=== PATIENT | female | born 1935 | race Caucasian/White ===

== ENCOUNTER → 2017-02-23 | Outpatient (CLI) | payer OTHER | LOC: FIMAGING 10:31 | PROVIDERS: ATTEND Family Medicine | DX: Z13.820 Encounter for screening for osteoporosis (principal); M81.0 Age-related osteoporosis without current pathological fracture; Z78.0 Asymptomatic menopausal state ==

== ENCOUNTER 2018-06-21 04:01 | Inpatient (IN) | payer OTHER ==
[2018-06-21] MEDS ORDERED: NS 1,000 ML IV ONE (04:09)
[2018-06-21] MEDS ORDERED: DILTIAZEM 25 MG/5 ML VIAL IVP ONE (04:10)
--- NOTE | 2018-06-21 04:13 | EDPHY ---
H & P Time Seen by Provider: 06/21/18 04:10 HPI/ROS: HPI CHIEF COMPLAINT: Lightheadedness, AFib RVR HISTORY OF PRESENT ILLNESS: Very pleasant 83-year-old female, states only medical history is thyroid disease, presents emergency room by EMS after she states that she woke up with reflux in her throat. She took 2 antacid medications comma got up and felt very lightheaded. [place] like she was going to pass out. Did not have any chest pain. Did not pass out. Called 911. EMS arrived to find her in AFib with RVR and heart rates of 150s. Patient presents emergency room in no acute distress. However noted to be in AFib with RVR. Denies chest pain shortness of breath. Does state she feels lightheaded. And feels that her heart is racing. Past Medical History: No significant medical history except for thyroid disease remote history of AFib with pneumonia. Past Surgical History: Denies any recent surgery. Social History: Lives at the [facility]. Family History: Noncontributory ROS REVIEW OF SYSTEMS: 10 Systems were reviewed and negative with the exception of the elements mentioned in the history of present illness. Exam Constitutional triage nursing summary reviewed, vital signs reviewed, awake/ alert. Tachycardic to 150s. Eyes normal conjunctivae and sclera, EOMI, PERRLA. HENT normal inspection, atraumatic, moist mucus membranes, no epistaxis, neck supple/ no meningismus, no raccoon eyes. Respiratory clear to auscultation bilaterally, normal breath sounds, no respiratory distress, no wheezing. Cardiovascular tachycardic, irregular, irregular rhythm no murmur, no edema, distal pulses normal. Gastrointestinal soft, non-tender, no rebound, no guarding, normal bowel sounds, no distension, no pulsatile mass. Genitourinary no CVA tenderness. Musculoskeletal no midline vertebral tenderness, full range of motion, no calf swelling, no tenderness of extremities, no meningismus, good pulses, neurovascularly intact. Skin pink, warm, & dry, no rash, skin atraumatic. Neurologic awake, alert and oriented x 3, AAOx3, moves all 4 extremities equally, motor intact, sensory intact, CN II-XII intact, normal cerebellar, normal vision, normal speech. Psychiatric normal mood/affect. Heme/Lymph/Immune no lymphadenopathy. 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 Re-evaluation: EKG interpretation by me on record in [facility] system. Impression time of EKG 0422: AFib rate of 148, no ST elevation. 0441: Patient's heart rate down 106 irregular. AFib present. After 10 mg IV diltiazem. Troponin 0.00. ED x-ray chest one view: Negative for acute cardiopulmonary disease. EKG interpretation by me on record in [facility] system. Impression time of EKG 4:45 a.m., AFib rate of 82, no signs of acute ischemia. Source: Patient, EMS Constitutional: Initial Vital Signs Temperature (C) 36.6 C 06/21/18 04:00 Heart Rate 149 H 06/21/18 04:00 Respiratory Rate 18 06/21/18 04:00 Blood Pressure 127/97 H 06/21/18 04:00 O2 Sat (%) 95 06/21/18 04:00 O2 Delivery Mode Room Air Allergies/Adverse Reactions: No Known Allergies Allergy (Verified 04/23/13 19:16) Home Medications: Medication Instructions Recorded Calcium Unk 04/23/13 Fish Oil Unk 04/23/13 Glucosamine Chondroitin Msm Unk 04/23/13 Hydrocodone Bit/Acetaminophen 1 tab PO Q4-6PRN PRN #14 tab 04/23/13 [Vicodin 5/500] Hydrocodone Bit/Acetaminophen 1 tab PO Q4-6PRN PRN #14 tab 04/23/13 [Vicodin 5/500] Levothyroxine Unk 04/23/13 Multivitamins Unk 04/23/13 Medical Decision Making - Data Points Laboratory Results: Laboratory Results 06/21/18 04:10 06/21/18 04:10 06/21/18 06/21/18 06/21/18 04:10 04:10 04:10 WBC 11.51 10^3/uL H 10^3/uL (3.80-9.50) RBC 5.46 10^6/uL H 10^6/uL (4.18-5.33) Hgb 16.7 g/dL H g/dL (12.6-16.3) Hct 50.8 % H % (38.0-47.0) MCV 93.0 fL fL (81.5-99.8) MCH 30.6 pg pg (27.9-34.1) MCHC 32.9 g/dL g/dL (32.4-36.7) RDW 13.2 % % (11.5-15.2) Plt Count 192 10^3/uL 10^3/uL (150-400) MPV 10.8 fL fL (8.7-11.7) Neut % (Auto) 58.4 % % (39.3-74.2) Lymph % (Auto) 28.9 % % (15.0-45.0) [place] % (Auto) 10.0 % % (4.5-13.0) Eos % (Auto) 1.8 % % (0.6-7.6) Baso % (Auto) 0.6 % % (0.3-1.7) Nucleat RBC Rel Count 0.0 % % (0.0-0.2) Absolute Neuts (auto) 6.71 10^3/uL H 10^3/uL (1.70-6.50) Absolute Lymphs (auto) 3.33 10^3/uL H 10^3/uL (1.00-3.00) Absolute Monos (auto) 1.15 10^3/uL H 10^3/uL (0.30-0.80) Absolute Eos (auto) 0.21 10^3/uL 10^3/uL (0.03-0.40) Absolute Basos (auto) 0.07 10^3/uL 10^3/uL (0.02-0.10) Absolute Nucleated RBC 0.00 10^3/uL 10^3/uL (0-0.01) Immature Gran % 0.3 % % (0.0-1.1) Immature Gran # 0.04 10^3/uL 10^3/uL (0.00-0.10) PT 12.6 SEC SEC (12.0-15.0) INR 0.92 (0.83-1.16) APTT 25.8 SEC SEC (23.0-38.0) Sodium 144 mEq/L mEq/L (135-145) Potassium 4.3 mEq/L mEq/L (3.3-5.0) Chloride 109 mEq/L mEq/L (97-110) Carbon Dioxide 25 mEq/l mEq/l (22-31) Anion Gap 10 mEq/L mEq/L (8-16) BUN 26 mg/dL H mg/dL (7-23) Creatinine 0.6 mg/dL mg/dL (0.6-1.0) Estimated GFR > 60 Glucose 97 mg/dL mg/dL (70-100) Calcium 10.0 mg/dL mg/dL (8.5-10.4) Magnesium 2.2 mg/dL mg/dL (1.6-2.3) Total Bilirubin 0.4 mg/dL mg/dL (0.1-1.4) Conjugated Bilirubin 0.1 mg/dL mg/dL (0.0-0.5) Unconjugated Bilirubin 0.3 mg/dL mg/dL (0.0-1.1) AST 22 IU/L IU/L (14-46) ALT 32 IU/L IU/L (9-52) Alkaline Phosphatase 89 IU/L IU/L (38-126) POC Troponin I NT-Pro-B Natriuret Pep 253 pg/mL pg/mL (0-450) Total Protein 6.8 g/dL g/dL (6.3-8.2) Albumin 4.0 g/dL g/dL (3.5-5.0) TSH 1.100 uIU/mL uIU/mL (0.465-4.680) 06/21/18 04:09 WBC RBC Hgb Hct MCV MCH MCHC RDW Plt Count MPV Neut % (Auto) Lymph % (Auto) [place]utter % (Auto) Eos % (Auto) Baso % (Auto) Nucleat RBC Rel Count Absolute Neuts (auto) Absolute Lymphs (auto) Absolute Monos (auto) Absolute Eos (auto) Absolute Basos (auto) Absolute Nucleated RBC Immature Gran % Immature Gran # PT INR APTT Sodium Potassium Chloride Carbon Dioxide Anion Gap BUN Creatinine Estimated GFR Glucose Calcium Magnesium Total Bilirubin Conjugated Bilirubin Unconjugated Bilirubin AST ALT Alkaline Phosphatase POC Troponin I 0.00 ng/mL ng/mL (0.00-0.08) NT-Pro-B Natriuret Pep Total Protein Albumin TSH Medications Given: Discontinued Medications Diltiazem HCl (Cardizem 25 Mg/5 Ml Vial) 10 mg IVP EDNOW ONE Stop: 06/21/18 04:11 Last Admin: 06/21/18 04:25 Dose: 10 mg Sodium Chloride (Ns) 1,000 mls @ 0 mls/hr IV EDNOW ONE; Wide Open PRN Reason: Protocol Stop: 06/21/18 04:10 Last Admin: 06/21/18 04:25 Dose: 1,000 mls Diltiazem/Dextrose (Diltiazem 125mg/125ml (Premix)) 125 mls @ 0 mls/hr IV EDNOW ONE; Per Protocol PRN Reason: Protocol Stop: 06/21/18 04:31 Last Admin: 06/21/18 04:31 Dose: 125 mls Point of Care Test Results: Chemistry 06/21/18 04:09 POC Troponin I 0.00 ng/mL ng/mL (0.00-0.08) Departure - Departure Disposition: [facility] Inpatient Acute Clinical Impression: Atrial fibrillation Qualifiers: Atrial fibrillation type: paroxysmal Qualified Code(s): I48.0 - Paroxysmal atrial fibrillation Condition: Fair Referrals: Patient,NotPresent [Unknown] - As per Instructions
[2018-06-21 04:15] LABS: PLATELET COUNT 192 10^3/uL (150-400)
[2018-06-21] MEDS ORDERED: DILTIAZEM 125 MG in D5W 125 ML IV SCH ×2 (04:15→05:45)
[2018-06-21 04:25] LABS: INR 0.92 (0.83-1.16); PROTIME(PATIENT) 12.6 SEC (12.0-15.0)
[2018-06-21] MEDS ORDERED: DILTIAZEM HCL/D5W 125 ML IV ONE (04:30)
[2018-06-21] MEDS ORDERED: ACETAMINOPHEN 325 MG TAB PO PRN (05:36)
[2018-06-21] MEDS ORDERED: ONDANSETRON 4 MG/2 ML VIAL IVP PRN (05:36)
[2018-06-21] MEDS ORDERED: NS 1,000 ML IV SCH (05:45)
--- NOTE | 2018-06-21 06:16 | PDGENHP ---
History and Physical - Chief Complaint Reflux, lightheadedness, palpitations - History of Present Illness Source-patient provides history appears reliable. EMR was reviewed and case discussed with ED provider. HPI - is a very pleasant 83-year-old female past medical history significant for hypothyroidism and a singular episode of atrial fibrillation during hospitalization and acute illness with pneumonia who presents emergency department today after waking up with reflux type symptoms and lower neck discomfort. Patient reports that she tried to take 2 Tums on without noting to significant improvement in her symptoms. She subsequently developed significant lightheadedness and palpitations. She denies any chest pain pressure or shortness of breath. She did not have a syncopal episode and she called 911. EMS arrived to find patient had a heart rate in the 150s and was in AFib with RVR. Patient denies any acute illnesses. No recent fevers chills. She has chronic nasal congestion but no sore throat or cough. Patient reports a little bit of nausea earlier that is now resolved no abdominal pain no diarrhea. No other acute illnesses reported. History Information - Allergies/Home Medication List Allergies/Adverse Reactions: No Known Allergies Allergy (Verified 04/23/13 19:16) Home Medications: Calcium Unk 04/23/13 [Last Taken Unknown] Fish Oil Unk 04/23/13 [Last Taken Unknown] Glucosamine Chondroitin Msm Unk 04/23/13 [Last Taken Unknown] Levothyroxine Unk 04/23/13 [Last Taken Unknown] Multivitamins Unk 04/23/13 [Last Taken Unknown] I have personally reviewed and updated: family history, medical history, social history, surgical history - Past Medical History Additional medical history: Hypothyroidism. Remote history of atrial fibrillation x1 episode during acute illness. Patient reports that she had a Holter monitor is followed by Dr. Enoch Shelley. She states the monitor not note any acute events and she has not been on any medications for rate control or anticoagulation. - Surgical History Additional surgical history: Bilateral cataract extraction with lens placement. Lap yoselyn. Right EDUIN - Family History Additional family history: Father- emphysema. Possibly with history of AFib. No family history of CAD. - Social History Smoking Status: Never smoked Alcohol Use: Occasionally (Patient drinks occasional glass a wine.) Drug Use: None Additional social history: Patient is . She lives at [facility]. Patient lives leads active lifestyle she hikes on a regular basis and is generally quite independent. Cor status-limited. Patient does not want any compressions or intubation if needed. She is amenable to defibrillation and IV medications. Review of Systems Review of Systems: ROS: 10pt was reviewed & negative except for what was stated in HPI & below Constitutional: Reports: no symptoms EENMT: Reports: nose congestion (Chronic), other (Patient wears glasses). Denies: blurred vision, sore throat, throat swelling Cardiac: Reports: lightheadedness, palpitations. Denies: chest pain, edema, syncope (Patient reports some presyncope) Respiratory: Reports: no symptoms. Denies: orthopnea, shortness of breath Gastrointestinal: Reports: nausea. Denies: vomitting, abdominal pain, diarrhea Genitourinary: Reports: no symptoms Muscolosketal: Reports: no symptoms Skin: Reports: no symptoms Neurological: Reports: no symptoms Hematologic/Lymphatic: Reports: no symptoms Physical Exam Physical Exam: Temp Pulse Resp BP Pulse Ox 36.6 C 149 H 18 127/97 H 95 06/21/18 04:00 06/21/18 04:00 06/21/18 04:00 06/21/18 04:00 06/21/18 04:00 Constitutional: no apparent distress, appears nourished, not in pain, other ( NAD. Pleasant elderly female is resting quietly in a gurney. Family at bedside.) Eyes: PERRL (Lens reflex appreciated bilaterally glasses on), anicteric sclera, EOMI, No scleral injection Ears, Nose, Mouth, Throat: no oral mucosal ulcers, dry mucous membranes, hard of hearing, No poor dentition Cardiovascular: no murmur, rub, or gallop (Limited secondary a to tachycardia.) , irregularly irregular, pulses symmetric bilaterally, tachycardia, No edema Peripheral Pulses: 1+: dorsalis-pedis (R), dorsalis-pedis (L) Respiratory: no respiratory distress, no rales or rhonchi, clear to auscultation , reduced air movement (Decreased inspiratory effort bibasilarly.), No expiratory wheeze, No inspiratory crackles, No respiratory distress Gastrointestinal: normoactive bowel sounds, soft, non-tender abdomen, no palpable masses, No distension Genitourinary: no bladder tenderness, No dennison in urethra Skin: warm, normal color, no rashes or abrasions, no fluctuance, No erythema, No rash Musculoskeletal: full muscle strength (Patient sits up independently), No generalized weakness Neurologic: AAOx3, sensation intact bilaterally, other (Grossly nonfocal exam.) , No facial droop Psychiatric: interacting appropriately, not anxious, not encephalopathic, thought process linear, No encephalopathic, No poor insight, No poor judgement, No poor memory Lab Data & Imaging Review 06/21/18 04:10 06/21/18 04:10 WBC 11.51 10^3/uL (3.80-9.50) H 06/21/18 04:10 RBC 5.46 10^6/uL (4.18-5.33) H 06/21/18 04:10 Hgb 16.7 g/dL (12.6-16.3) H 06/21/18 04:10 Hct 50.8 % (38.0-47.0) H 06/21/18 04:10 MCV 93.0 fL (81.5-99.8) 06/21/18 04:10 MCH 30.6 pg (27.9-34.1) 06/21/18 04:10 MCHC 32.9 g/dL (32.4-36.7) 06/21/18 04:10 RDW 13.2 % (11.5-15.2) 06/21/18 04:10 Plt Count 192 10^3/uL (150-400) 06/21/18 04:10 MPV 10.8 fL (8.7-11.7) 06/21/18 04:10 Neut % (Auto) 58.4 % (39.3-74.2) 06/21/18 04:10 Lymph % (Auto) 28.9 % (15.0-45.0) 06/21/18 04:10 [place] % (Auto) 10.0 % (4.5-13.0) 06/21/18 04:10 Eos % (Auto) 1.8 % (0.6-7.6) 06/21/18 04:10 Baso % (Auto) 0.6 % (0.3-1.7) 06/21/18 04:10 Nucleat RBC Rel Count 0.0 % (0.0-0.2) 06/21/18 04:10 Absolute Neuts (auto) 6.71 10^3/uL (1.70-6.50) H 06/21/18 04:10 Absolute Lymphs (auto) 3.33 10^3/uL (1.00-3.00) H 06/21/18 04:10 Absolute Monos (auto) 1.15 10^3/uL (0.30-0.80) H 06/21/18 04:10 Absolute Eos (auto) 0.21 10^3/uL (0.03-0.40) 06/21/18 04:10 Absolute Basos (auto) 0.07 10^3/uL (0.02-0.10) 06/21/18 04:10 Absolute Nucleated RBC 0.00 10^3/uL (0-0.01) 06/21/18 04:10 Immature Gran % 0.3 % (0.0-1.1) 06/21/18 04:10 Immature Gran # 0.04 10^3/uL (0.00-0.10) 06/21/18 04:10 PT 12.6 SEC (12.0-15.0) 06/21/18 04:10 INR 0.92 (0.83-1.16) 06/21/18 04:10 APTT 25.8 SEC (23.0-38.0) 06/21/18 04:10 Sodium 144 mEq/L (135-145) 06/21/18 04:10 Potassium 4.3 mEq/L (3.3-5.0) 06/21/18 04:10 Chloride 109 mEq/L (97-110) 06/21/18 04:10 Carbon Dioxide 25 mEq/l (22-31) 06/21/18 04:10 Anion Gap 10 mEq/L (8-16) 06/21/18 04:10 BUN 26 mg/dL (7-23) H 06/21/18 04:10 Creatinine 0.6 mg/dL (0.6-1.0) 06/21/18 04:10 Estimated GFR > 60 06/21/18 04:10 Glucose 97 mg/dL (70-100) 06/21/18 04:10 Calcium 10.0 mg/dL (8.5-10.4) 06/21/18 04:10 Magnesium 2.2 mg/dL (1.6-2.3) 06/21/18 04:10 Total Bilirubin 0.4 mg/dL (0.1-1.4) 06/21/18 04:10 Conjugated Bilirubin 0.1 mg/dL (0.0-0.5) 06/21/18 04:10 Unconjugated Bilirubin 0.3 mg/dL (0.0-1.1) 06/21/18 04:10 AST 22 IU/L (14-46) 06/21/18 04:10 ALT 32 IU/L (9-52) 06/21/18 04:10 Alkaline Phosphatase 89 IU/L (38-126) 06/21/18 04:10 POC Troponin I 0.00 ng/mL (0.00-0.08) 06/21/18 04:09 NT-Pro-B Natriuret Pep 253 pg/mL (0-450) 06/21/18 04:10 Total Protein 6.8 g/dL (6.3-8.2) 06/21/18 04:10 Albumin 4.0 g/dL (3.5-5.0) 06/21/18 04:10 TSH 1.100 uIU/mL (0.465-4.680) 06/21/18 04:10 Imaging Review: Chest x-ray image it was reviewed myself report is still pending. Negative for any acute findings or consolidations. EKG additional interpertation: ekg #1 - SVT in the 140s. RBBB, LAFB. QTC 506. ekg #2 - AFib with rate in the 80s. RBBB. QTC 413. Assessment & Plan Assessment: 83-year-old female with history of hypothyroidism presents with palpitations and reflux-type symptoms #Atrial fibrillation with RVR - patient was started on a Cardizem drip after a 10 mg bolus. She has been titrated up to 15 milligrams/hour and continues to have a ventricular rate in the 140s to 150s. Patient did have a nonsustained episode of conversion to normal sinus rhythm but quickly returned to AFib with RVR when the rates of 150s. Blood pressures are sustaining. She reports that her on normal baseline SBP is in the 110s. Patient reports a remote history of atrial fibrillation singular episode that occurred during an acute illness and hospitalization for pneumonia. Will obtain echocardiogram. Cardiology consult in the morning as per day team. Patient's primary industrial tech instructor is Dr. Enoch Shelley. Discussed with the patient and her family at bedside regarding anticoagulation risks and benefits. Patient is amenable to proceed and will order of therapeutic dose of Lovenox at this time pending echocardiogram and patient qualification for oral anticoagulation options on outpatient basis. #Hypothyroidism - TSH within normal limits. Continue with patient's replacement. #Polycythemia-likely secondary to dehydration. Patient does appear to be slightly dry her BUN is also slightly elevated. She is receiving IV fluids. FEN - IV fluid supplementation as noted above. Electrolytes are adequate do not require replacement at this time. Cardiac diet has been ordered. PPX-SCDs. Lovenox therapeutic dosing as noted above. Cor status-limited patient does not want any compressions or intubation but amenable to defibrillation and IV medications. Disposition-patient admitted to inpatient status on the PCU floor for close cardiac monitoring given the persistence of her AFib with RVR and need for further evaluation and considerations of long-term treatment.
--- NOTE | 2018-06-21 11:32 | WOCRNPDOC ---
WOCRN Advanced Assessment Note - Skin Integrity Problem, Advanced Assess Right First Toe Dressing Type: Open to Air Exudate Amount: None Regla Wound Tissue: Blanching Skin Integrity Problem Comment: Wound care consulted on red area at tip of great toe of right foot. Red area is blanching. Discussed with patient making sure that she wears shoes that do not rub on that area as it can cause a pressure injury if her shoes do not fit correctly. Patient states she wears sandles mostly, but understands the need for proper fitting footwear. Wound care will sign off. Please reconsult PRN. Left First Toe Dressing Type: Open to Air Exudate Amount: None Regla Wound Tissue: Blanching Skin Integrity Problem Comment: Wound care consulted on red area at tip of great toe of left foot. Red area is blanching. Discussed with patient making sure that she wears shoes that do not rub on that area as it can cause a pressure injury if her shoes do not fit correctly. Patient states she wears sandles mostly, but understands the need for proper fitting footwear. Wound care will sign off. Please reconsult PRN.
[2018-06-21] MEDS: ENOXAPARIN 60 MG/0.6 ML SYR SC SCH ×2 (11:42→18:16)
--- NOTE | 2018-06-21 12:17 | PDMN ---
Medical Necessity Medical necessity: Pt meets inpt criteria per MD order and MCG M-505, Atrial Fibrilation. 83 y/o admitted w/symptomatic atrial fibrillation w/RVR. Diltiazem gtt initiated in ED and continued to have vent rate in 140's-150's, hypotensive w/ last BP 90/61. PCU monitoring, IVF, IV diltiazem gtt, cardiology consult pending, anticipate >2MN due to persistence of afib w/RVR and need for further evaluation/treatment.
--- NOTE | 2018-06-21 12:19 | ASMTCASEMG ---
Living Arrangements What is your living Answers: Alone arrangement? Who do you live with? Type Of Residence What kind of residence do Answers: Apartment you live in? Discharge Plan Comments Coordination Status Comments Notes: Pts case discussed in in tx rounds. Pt is a 83 y/o female admitted for lightheadedness and palpitations. Pt presented at the hospital w/ afib and heart rate of 150s with rvr. Pt has a hx of hypothyroidism. Pt will most likely d/c independent when medically stable. No therapies ordered at this time. CM available for changes. Plan: Independent Date Signed: 06/21/2018 11:59 AM Electronically Signed By:MANSOOR Guerra
--- NOTE | 2018-06-21 13:45 | ECHO ---
[email or web address] [address] [address] Main: [phone] Fax: [email or web address] Echocardiogram Name: BRANDON RUBIO MR#: [id number] Study Date: 06/21/2018 Study Time: 10:46 AM Date of : 1935 Age: 83 year(s) Height: 167.6 cm (66 in.) Weight: 57.15 kg (126 lb.) BSA: 1.64 m2 Gender: Female Examination: Echo Indication: Atrial Fibrillation Image Quality: Adequate Contrast: Requested by: Kia Pickard BP: 90 mmHg/61 mmHg Heart Rate: Rhythm: Indication: Atrial Fibrillation Procedure Staff Manager Pmo: Abbie Henley RD Reading Physician: Cory Wyatt MD Requesting Provider: Conclusions: Normal global systolic LV function. EF is 68 %. There is mild thickening of the mitral valve leaflets. Mild mitral annular calcification. Trivial to mild mitral regurgitation. Aortic sclerosis is present. No aortic valve stenosis is present. Mild tricuspid regurgitation is present. Right ventricular systolic pressure measures 22mmHg. Measurements: Chambers Valvular Assessment AV/MV Valvular Assessment TV/PV Normal Normal Normal Name Value Range Name Value Range Name Value Range Ao Betty (MM): 3.5 cm (2.2 cm-3.7 AV Vmax: 1.24 m/s (1 m/s-1.7 TR Vmax: 2.08 mm/s ( - ) cm) m/s) TR PGmax: 17 mmHg ( - ) IVSd (2D): 0.9 cm (0.6 cm-1.1 AV maxP mmHg ( - ) syst. PAP: 22 mmHg ( - ) cm) LVOT Vmax: 0.74 m/s (0.7 m/s-1.1 PV Vmax: 0.53 m/s (0.6 m/s-0.9 LVDd (2D): 3.6 cm (3.9 cm-5.3 m/s) m/s) cm) MARY ANNE (Vmax): 1.7 cm2 ( - ) PV PGmax: 1 mmHg ( - ) LVDs (2D): 2.2 cm (2.1 cm-4 MV E Vmax: 0.78 m/s ( - ) cm) MV A Vmax: 0.56 m/s ( - ) LVPWd (2D): 0.8 cm ( - ) MV E/A: 1.39 ( - ) LVOTd 1.9 cm 1.9 cm mm LVEF (BP): 68 % (>=55 %) RVDd(2D): 3.0 cm (1.9 cm-3.8 cmmm) Continued Measurements: Chambers Valvular Assessment AV/MV Valvular Assessment TV/PV Patient: BRANDON RUBIO Study Date: 06/21/2018 Page 1 of 2 10:46 AM Name Value Name Value Name Value LADs Lon.0 cm MV DecTime: 215 m/s CVP (est.): 5 mmHg LA Area: 15.5 cm2 MV E' Septal: 0.06 m/s LA Volume: 49 ml MV E/E' Septal: 12.50 LA Volume Index: 29.9 ml/m2 MV E/E' Lateral: 12.50 TAPSE: 1.9 cm RA Area: 12.9 cm2 Additional Vessels Name Value Ao Ascendin.6 cm Findings: Left Ventricle: Normal size left ventricle. No LV hypertrophy. Normal global systolic LV function. EF is 68 %. No regional wall motion abnormality. Normal diastolic LV function. Right Ventricle: Normal size right ventricle. Normal RV function. Right Atrium: The right atrium is normal in size. Mitral Valve: There is mild thickening of the mitral valve leaflets. Mild mitral annular calcification. Trivial to mild mitral regurgitation. No mitral stenosis is present. Aortic Valve: The aortic valve is tri-leaflet. Aortic sclerosis is present. There is no aortic valve regurgitation. No aortic valve stenosis is present. Tricuspid Valve: The tricuspid valve is normal in appearance and function. Mild tricuspid regurgitation is present. Right ventricular systolic pressure measures 22mmHg. The pulmonary artery pressure is normal. Pulmonic Valve: Pulmonary valve not well visualized. Mild pulmonic valve regurgitation is noted. Aorta: Normal size aortic root measuring 3.5 cm. Normal size ascending aorta measuring 3.6 cm. IVC: The IVC is normal sized. There is greater trav 50% respiratory excursion. Pericardium: Trace anterior pericardial effusion versus fat pad. (No Signature Object) Patient: BRANDON RUBIO Study Date: 06/21/2018 Page 2 of 2 10:46 AM [id number]
[2018-06-21] MEDS ORDERED: CHOLECALCIFEROL VIT D3 1,000 UNITS TAB PO SCH (15:30)
[2018-06-21] MEDS ORDERED: LEVOTHYROXINE 75 MCG TAB PO SCH (15:30)
[2018-06-21] MEDS ORDERED: OMEGA-3 FATTY ACIDS 1,000 MG CAP PO SCH (15:30)
[2018-06-21 15:31] VITALS: BP 96/52
--- NOTE | 2018-06-21 17:12 | PDDCSUM ---
Discharge Summary Discharge Summary: DISCHARGE DIAGNOSES: * acute episode rapid atrial fibrillation with history of paroxysmal AFib * absence of congestive heart failure * unremarkable echocardiogram PROCEDURES: Echocardiogram HOSPITAL COURSE SUMMARY: This patient has 1 previous history of atrial fibrillation that occurred during hospitalization for pneumonia. It resolved during that hospitalization without any heart failure or other cardiac findings. She has done well without any therapy until then. At this time she comes in with a funny sensation in her substernal chest and neck and is found to have rapid atrial fibrillation. There are no finding of heart failure or ischemia. Her vital signs other than the heart rate were normal throughout her stay here. She was treated with IV diltiazem and this controlled her rate reasonably well without side effects. She did spontaneously convert to sinus rhythm in less than 24 hr. There is no sign of embolic disease or stroke. At this time she feels back to normal, is up walking in the hallways, still has no dyspnea normal vital signs and an unremarkable examination. Echocardiogram showed no concerning cardiac abnormalities. TSH was normal. She is not an alcohol drinker. It did appear she may have been mildly dehydrated and she was counseled on keeping better hydrated. She mentioned trouble with frequent nocturia. Is recommended this point she increase her fluid intake in the morning to avoid the nocturia, but also to seek out referral through her primary care physician to a urologist for assessment of her bladder function. PENDING TEST RESULTS: None MEDICATION CHANGES: Addition of Eliquis 5 mg twice daily FOLLOW-UP PLAN: At [facility] on July 01 She is aware to be careful to avoid any kind of injuries, and is aware to wear seatbelts, she is aware to report any bleeding bruising or any other concerning problems with her medication. Greater than 35 minutes bedside and care coordination time today
[2018-06-21] MEDS ORDERED: PRESERVISION AREDS2 FORMULA EYE VIT 1 EACH PO SCH (21:00)
[2018-06-21] MEDS ORDERED: TEARS/DEXTRAN 70/HYPROMELLOSE 15 ML OPHT.BTL EACHEYE SCH (21:00)
--- NOTE | 2018-06-24 05:47 | CPEKG ---
Test Reason : OPEN Blood Pressure : / mmHG Vent. Rate : 082 BPM Atrial Rate : 138 BPM P-R Int : 192 ms QRS Dur : 124 ms QT Int : 380 ms P-R-T Axes : 000 -78 054 degrees QTc Int : 444 ms Atrial fibrillation Right bundle branch block Confirmed by Michael Galeas ([id number]) on 06/24/2018 5:47:01 AM Referred By: Confirmed By:Michael Galeas
--- NOTE | 2018-06-24 05:47 | CPEKG ---
Test Reason : OPEN Blood Pressure : / mmHG Vent. Rate : 148 BPM Atrial Rate : 163 BPM P-R Int : 082 ms QRS Dur : 119 ms QT Int : 322 ms P-R-T Axes : 000 -85 060 degrees QTc Int : 506 ms Supraventricular tachycardia RBBB and LAFB Confirmed by Michael Galeas ([id number]) on 06/24/2018 5:47:01 AM Referred By: Confirmed By:Michael Galeas
== END 2018-06-21 18:42 | disposition home or self-care (01) | DRG 310 ==
LOC: EDUNIT# → F2W 06:29
PROVIDERS: ADMIT Family Medicine; ATTEND Family Medicine
DX: I48.91 Unspecified atrial fibrillation (principal); E86.0 Dehydration; E03.9 Hypothyroidism, unspecified; D75.1 Secondary polycythemia
CPT/HCPCS: 84484-PO; 96374; J1650

== ENCOUNTER → 2019-01-20 | Outpatient (CLI) | payer OTHER | LOC: FIMAGING 14:27 | PROVIDERS: ATTEND Physician Assistant | DX: M41.86 Other forms of scoliosis, lumbar region (principal); M51.36 Other intervertebral disc degeneration, lumbar region; M81.0 Age-related osteoporosis without current pathological fracture; Z96.641 Presence of right artificial hip joint ==

== ENCOUNTER → 2019-02-07 | Outpatient (CLI) | payer OTHER | LOC: FIMAGING 13:57 | PROVIDERS: ATTEND Family Medicine | DX: Z13.820 Encounter for screening for osteoporosis (principal); M81.0 Age-related osteoporosis without current pathological fracture ==